=== PATIENT | female | born 1985 | race Caucasian/White ===

== ENCOUNTER 2019-09-06 19:01 | Inpatient (IN) | payer OTHER ==
--- NOTE | 2019-09-06 19:04 | PDOC ---
Rapid Medical Evaluation Time Seen by Provider: 09/06/19 19:03 Medical Evaluation: Allergies Allergy/AdvReac Type Severity Reaction Status Date / Time No Known Allergies Allergy Verified 09/26/17 17:34 09/06/19 19:03 I have performed a brief in-person evaluation of this patient. The patient presents with a chief complaint of: 27 weeks w/ high blood pressure, headaches, seeing flashing lights. Sent by Urgent care. Pertinent physical exam findings: I have ordered the following: Pt to go to [facility] The patient will proceed to the ED for further evaluation. Discharge Disposition - Diagnosis Headache - Referrals - Patient Instructions - Post Discharge Activity
[2019-09-06 19:06] VITALS: BMI 30.2
[2019-09-06 21:13] LABS: EPI CELLS 1.2 /HPF (0-5/HPF); HYALINE CASTS 1 /lpf (0-8); URINE APPEARANCE CLEAR; URINE BACTERIA 207.3 /hpf (NEGATIVE); URINE BILIRUBIN NEGATIVE (NEGATIVE); URINE COLOR YELLOW; URINE GLUCOSE (UA) NEGATIVE (NEGATIVE); URINE KETONE NEGATIVE (NEGATIVE); URINE LEUK ESTERASE NEGATIVE (NEGATIVE); URINE NITRITE NEGATIVE (NEGATIVE); URINE PROTEIN NEGATIVE (NEGATIVE); URINE RBC 2 /hpf (0-4); URINE UROBILINOGEN 0.2 mg/dL (0.2-1.0); URINE WBC 5 /hpf (0-5)
[2019-09-06 22:15] LABS: BILIRUBIN,TOTAL 0.2 mg/dL (0.2-1); BLOOD UREA NITROGEN 6.5 mg/dL (7-18); CALCIUM 8.7 mg/dL (8.5-10.1); CREATININE 0.6 mg/dL (0.55-1.3); POTASSIUM 4.6 mmol/L (3.5-5.1); TOT PROT 6.3 g/dl (6.4-8.2)
[2019-09-06 22:17] LABS: URIC ACID 4.4 mg/dL (2.6-7.2)
[2019-09-06] MEDS ORDERED: ELECTROLYTE-148 SOLN 1,000 ML IV SCH (23:00)
[2019-09-07] MEDS ORDERED: BETAMET ACET/BETAMET NA PH 30 MG/5 ML VIAL IM STA (00:05)
--- NOTE | 2019-09-07 00:06 | HP ---
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 pt was seeing MFM [facility] 2x a week and MFM was concerned about . Pt was on Baby ASA. No ROM no bleeding +AFM. No chart or MFM chart in [facility] Covering for Dr Patrick PmHx + IBS Kidney stones cyst removed from right breast 2003 History Source: Patient Limitations to Obtaining History: No Limitations - Past Medical History Gastrointestinal: Yes: Inflamatory Bowel Disease Renal/: Yes: Renal Calculi, Other ...: 1 ...Para: 0 ...LMP: 02/28/19 ... Weeks Gestation by Dates: 27.1 ...EDC by Dates: 12/05/19 - Past Surgical History Past Surgical History: Yes: Breast Biopsy (for cyst) Hx Myomectomy: No Hx Transabdominal Cerclage: No - Smoking History Smoking history: Never smoked - Alcohol/Substance Use Hx Alcohol Use: No History of Substance Use: reports: None - Social History Usual Living Arrangement: Yes: With Spouse, With Parent History of Recent Travel: No Home Medications - Allergies Allergies/Adverse Reactions: Allergies Allergy/AdvReac Type Severity Reaction Status Date / Time No Known Allergies Allergy Verified 09/26/17 17:34 - Home Medications Home Medications: Ambulatory Orders Ibuprofen [Motrin -] 600 mg PO TID PRN #21 tablet 05/30/16 Oxycodone HCl/Acetaminophen [Percocet 5-325 mg Tablet] 1 tab PO Q6H PRN #20 tablet MDD 4 tabs 05/30/16 Review of Systems - Review of Systems Constitutional: reports: No Symptoms Eyes: reports: No Symptoms HENT: reports: No Symptoms Neck: reports: No Symptoms Cardiovascular: reports: No Symptoms Respiratory: reports: No Symptoms Gastrointestinal: reports: No Symptoms Genitourinary: reports: No Symptoms Breasts: reports: No Symptoms Reported Musculoskeletal: reports: No Symptoms Integumentary: reports: No Symptoms Neurological: reports: Headache Endocrine: reports: No Symptoms Hematology/Lymphatic: reports: No Symptoms Psychiatric: reports: No Symptoms Physical Exam - Maternity Vital Signs: Vital Signs Temperature 99 F 09/06/19 21:00 Pulse Rate 71 09/06/19 21:30 Respiratory Rate 18 09/06/19 21:30 Blood Pressure 145/83 09/06/19 21:30 O2 Sat by Pulse Oximetry (%) 98 09/06/19 19:04 Constitutional: Yes: Well Nourished, No Distress, Anxious - Abdominal Exam/OB Fundal Height: 24 Number of Fetuses: Single Contractions: No Heart Rate (range): 160 Category: II Decelerations: Variable (occasional) - Vaginal Exam/OB Vaginal Bleediing: No Dilatation (cm): closed Effacement (%): long Amniotic Membrane Status: Intact - Physical Exam Extremities: Yes: WNL Edema: No Psychiatric: Yes: WNL, Alert, Oriented - Labs Lab Results: CBC, BMP 09/06/19 21:30 09/06/19 21:30 Problem List - Problems (2) 27 weeks gestation of Code(s): Z3A.27 - 27 WEEKS GESTATION OF (3) Bicornate uterus complicating Code(s): O34.00 - MATERNAL CARE FOR UNSP CONGEN MALFORM OF UTERUS, UNSP TRI; Q51.3 - BICORNATE UTERUS (4) Gestational hypertension Code(s): O13.9 - GESTATIONAL HTN W/O SIGNIFICANT PROTEINURIA, UNSP TRIMESTER (5) Generalized headaches Code(s): R51 - HEADACHE Assessment/Plan Iup at 27.1 week IUGR Hx bicoruate - in right horn headahes - resolved after leaving ER on LD steriods gven at 12:15 am Cat 2 Gestational HTN - PE labs negative Plan Transfer to [facility] - called and accepted by Dr Monroy steroids given IV
[2019-09-07] MEDS ORDERED: ELECTROLYTE-148 SOLN 1,000 ML IV SCH (00:30)
[2019-09-07 00:51] VITALS: BP 139/82; PULSE 76; TEMP 98.6
== END 2019-09-07 01:00 | disposition short-term general hospital (02) | DRG 833 ==
LOC: JER 19:01 → JLDR 23:55
PROVIDERS: ADMIT Obstetrics & Gynecology; ATTEND Obstetrics & Gynecology
DX: O36.5920 Maternal care for other known or suspected poor fetal growth, second trimester, not applicable or unspecified (principal); O13.2 Gestational [pregnancy-induced] hypertension without significant proteinuria, second trimester; O34.02 Maternal care for unspecified congenital malformation of uterus, second trimester; Q51.3 Bicornate uterus; R51 Headache
CPT/HCPCS: 36415; 80053; 81003; 82570; 82977; 83010; 84156; 84450; 84550; 85032; 85044; 96372; 99281-25

== ENCOUNTER 2022-10-13 17:33 | Emergency (ER) | payer OTHER ==
[2022-10-13 17:57] VITALS: TEMP 98.2; BMI 28.3
[2022-10-13] MEDS ORDERED: ONDANSETRON 4 MG/2 ML VIAL IVPUSH ONE (19:39)
[2022-10-13] MEDS ORDERED: ACETAMINOPHEN 1000 MG/100 ML BAG IVPB ONE (19:39)
[2022-10-13] MEDS ORDERED: SODIUM CHLORIDE 1,000 ML IV STA (19:39)
[2022-10-13] MEDS ORDERED: ACETAMINOPHEN INJECTION 100 ML IVPB ONE (19:47)
[2022-10-13] MEDS ORDERED: ONDANSETRON 4 MG/2 ML VIAL ONE (19:47)
[2022-10-13 20:24] LABS: BASO % 0.5 % (0-2.0); EOS % 0.7 % (0-4.5); HEMATOCRIT 43.1 % (32.4-45.2); LYMPH % 28.1 % (8-40); MCH 29.7 pg (25.7-33.7); MCHC 32.5 g/dl (32.0-36.0); MEAN CELL VOLUME 91.5 fl (80-96); MEAN PLT VOLUME 9.7 fl (7.5-11.1); MONO % 7.1 % (3.8-10.2); NEUT % 63.6 % (42.8-82.8); PLATELET COUNT 236 10^3/uL (134-434); RBC 4.72 M/mm3 (3.60-5.2); RDW 13.7 % (11.6-15.6); WHITE BLOOD COUNT 10.9 K/mm3 (4.0-10.0)
[2022-10-13 20:29] LABS: EPI CELLS 13 /uL (0-25.1); HYALINE CASTS 0 /uL (0-3.1); URINE APPEARANCE CLEAR; URINE BACTERIA 667 /uL (0-1359); URINE BILIRUBIN NEGATIVE (NEGATIVE); URINE COLOR YELLOW; URINE GLUCOSE (UA) NEGATIVE (NEGATIVE); URINE KETONE 2+ (NEGATIVE); URINE LEUK ESTERASE NEGATIVE (NEGATIVE); URINE NITRITE NEGATIVE (NEGATIVE); URINE PROTEIN NEGATIVE (NEGATIVE); URINE RBC 87 /uL (0-23.9); URINE UROBILINOGEN 0.2 mg/dL (0.2-1.0); URINE WBC 12 /uL (0-25.8)
[2022-10-13 20:31] LABS: INR 1.02 (0.83-1.09); PROTHROMBIN TIME (PATIENT) 11.7 SEC (9.7-13.0)
[2022-10-13 20:33] LABS: ACTIVATED PTT 28.4 SECONDS (25.2-36.5)
[2022-10-13 20:34] LABS: BLOOD UREA NITROGEN 11.1 mg/dL (7-18); CALCIUM 9.6 mg/dL (8.5-10.1)
[2022-10-13 20:37] LABS: CREATININE 0.8 mg/dL (0.55-1.3)
[2022-10-13 20:39] LABS: BILIRUBIN,TOTAL 0.4 mg/dL (0.2-1); TOT PROT 7.6 g/dl (6.4-8.2)
[2022-10-13] MEDS ORDERED: KETOROLAC TROMETHAMINE 15 MG/ML VIAL IVPUSH ONE (23:42)
[2022-10-14] MEDS ORDERED: KETOROLAC TROMETHAMINE 15 MG/ML VIAL ONE (00:02)
[2022-10-14 02:43] VITALS: BP 123/61; PULSE 67; RESP 16
== END 2022-10-14 02:44 | disposition home or self-care (01) ==
LOC: JER 17:33
PROC: 3E033GC Introduction of Other Therapeutic Substance into Peripheral Vein, Percutaneous Approach (ICD-10-PCS; principal; 2022-10-13)
DX: R10.31 Right lower quadrant pain (principal)
CPT/HCPCS: 0241U-QW; 36415; 74177-TC; 76830-TC; 80053; 81003; 83690; 84703; 85025; 85610; 85730; 87086; 99285-25

== ENCOUNTER 2022-12-21 14:20 | Emergency (ER) | payer OTHER ==
[2022-12-21 14:27] VITALS: BP 122/76; PULSE 87; RESP 18; TEMP 98.5; BMI 29.1
[2022-12-21] MEDS ORDERED: MECLIZINE HCL 25 MG TABLET (FP) PO ONE (16:39)
[2022-12-21] MEDS ORDERED: MECLIZINE HCL 25 MG TABLET (FP) ONE (16:45)
[2022-12-21] MEDS ORDERED: LACTATED RINGERS SOLUTION 1,000 ML/1,000 ML INFUS.BAG IV SCH (16:45)
[2022-12-21] MEDS ORDERED: ACETAMINOPHEN 1000 MG/100 ML BAG IVPB ONE (16:47)
[2022-12-21] MEDS ORDERED: ACETAMINOPHEN INJECTION 100 ML IVPB ONE (16:48)
[2022-12-21] MEDS ORDERED: ACETAMINOPHEN 325 MG TABLET (FP) PO ONE (16:49)
[2022-12-21] MEDS ORDERED: AMOXICILLIN 500 MG CAPSULE (FP) PO ONE (16:50)
[2022-12-21] MEDS ORDERED: AMOXICILLIN 500 MG CAPSULE (FP) ONE (16:51)
[2022-12-21] MEDS ORDERED: ACETAMINOPHEN 325 MG TABLET (FP) ONE (16:51)
== END 2022-12-21 21:05 | disposition home or self-care (01) ==
LOC: JER 14:20
DX: J02.0 Streptococcal pharyngitis (principal); R05.1 Acute cough; R09.81 Nasal congestion
CPT/HCPCS: 0241U-QW; 99283-25

== ENCOUNTER 2024-05-15 10:05 | Emergency (ER) | payer OTHER ==
[2024-05-15 10:11] VITALS: BP 104/57; PULSE 87; RESP 18; TEMP 98.4; BMI 31.6
[2024-05-15] MEDS ORDERED: IBUPROFEN 400 MG TABLET (FP) PO ONE (10:31)
[2024-05-15] MEDS ORDERED: ACETAMINOPHEN 500 MG TABLET (FP) ONE (10:31)
[2024-05-15] MEDS: ACETAMINOPHEN 500 MG TABLET (FP) PO ONE (10:36)
[2024-05-15] MEDS: IBUPROFEN 400 MG TABLET (FP) PO ONE (10:36)
== END 2024-05-15 12:29 | disposition home or self-care (01) ==
LOC: JER 10:05 → JERFT 10:05
DX: S93.601A Unspecified sprain of right foot, initial encounter (principal); X50.1XXA Overexertion from prolonged static or awkward postures, initial encounter; Y93.01 Activity, walking, marching and hiking
CPT/HCPCS: 73610-TC-RT-FY; 73630-TC-RT-FY; 99283-25